=== PATIENT | female | born 1965 | race Caucasian/White ===

== ENCOUNTER → 2023-07-19 | Day surgery (SDC) | payer BC ==
[~2023-07-19] MED LIST: Lactated Ringers 1,000 ML IV SCH
== END ==
LOC: CC.SDS 10:29
PROVIDERS: ATTEND Family Medicine
DX: D50.9 Iron deficiency anemia, unspecified (principal); K64.8 Other hemorrhoids; I10 Essential (primary) hypertension; Z79.899 Other long term (current) drug therapy; Z98.890 Other specified postprocedural states; Z88.5 Allergy status to narcotic agent; Z88.8 Allergy status to other drugs, medicaments and biological substances
CPT/HCPCS: J7120